=== PATIENT | female | born 1990 | race Hispanic/Latino ===

== ENCOUNTER 2019-08-01 08:55 | Emergency (ER) | payer MEDICAID ==
[2019-08-01] MEDS ORDERED: ZOFRAN IV ONE (09:54)
[2019-08-01] MEDS ORDERED: MORPHINE IV ONE (09:54)
[2019-08-01 10:27] LABS: Basophils % (Auto) 0.3 % (0.0-1.8); Eosinophils % (Auto) 1.2 % (0.0-4.3); Hematocrit 30.6 % (30.3-42.9); Hemoglobin 10.4 gm/dl (10.1-14.3); Lymphocytes # (Auto) 0.7 K/mm3 (1.2-5.4); Lymphocytes % (Auto) 17.1 % (13.4-35.0); Mean Corpuscular HGB Conc 34 % (30-34); Mean Corpuscular Volume 87 fl (79-97); Monocytes # (Auto) 0.4 K/mm3 (0.0-0.8); Monocytes % (Auto) 10.7 % (0.0-7.3); Platelet Count 140 K/mm3 (140-440); Red Blood Count 3.51 M/mm3 (3.65-5.03); Red Cell Distribution Width 15.4 % (13.2-15.2)
[2019-08-01 10:34] LABS: Alanine Aminotransferase 7 units/L (7-56); Albumin 3.9 g/dL (3.9-5); BUN/Creatinine Ratio 12; Blood Urea Nitrogen 6 mg/dL (7-17); Calcium 8.8 mg/dL (8.4-10.2); Hemolysis Index 4
--- NOTE | 2019-08-01 11:31 | Emergency Department Report ---
ED General Adult HPI - General Chief complaint: Abdominal Pain Stated complaint: ABD PAIN Time Seen by Provider: 08/01/19 09:28 Source: patient, EMS Mode of arrival: Stretcher Limitations: No Limitations - History of Present Illness Initial comments: The patient presents to the emergency department with chief complaint of right lower quadrant abdominal pain that has been present his awakening this morning. Patient describes the pain as sharp in nature and denies any radiation. Patient has no other complaints. -: Sudden Location: abdomen Radiation: non-radiation Severity scale (0 -10): 9 Quality: sharp Consistency: constant Improves with: none Worsens with: none Associated Symptoms: denies other symptoms Treatments Prior to Arrival: none - Related Data Previous Rx's Medication Instructions Recorded Last Taken Type Acetaminophen/Codeine [Tylenol 1 tab PO Q6H PRN #15 tab 08/01/19 Unknown Rx /Codeine # 3 tab] Naproxen [Naprosyn] 500 mg PO BID PRN #20 tablet 08/01/19 Unknown Rx Ondansetron [Zofran Odt] 4 mg PO Q4HR PRN #20 tab.rapdis 08/01/19 Unknown Rx Allergies Allergy/AdvReac Type Severity Reaction Status Date / Time No Known Allergies Allergy Unverified 08/01/19 09:02 ED Review of Systems ROS: Stated complaint: ABD PAIN Other details as noted in HPI Constitutional: denies: chills, fever Eyes: denies: eye pain, eye discharge, vision change ENT: denies: ear pain, throat pain Respiratory: denies: cough, shortness of breath, wheezing Cardiovascular: denies: chest pain, palpitations Endocrine: no symptoms reported Gastrointestinal: abdominal pain. denies: nausea, diarrhea Genitourinary: denies: urgency, dysuria, discharge Musculoskeletal: denies: back pain, joint swelling, arthralgia Skin: denies: rash, lesions Neurological: denies: headache, weakness, paresthesias Psychiatric: denies: anxiety, depression Hematological/Lymphatic: denies: easy bleeding, easy bruising ED Past Medical Hx - Past Medical History Previous Medical History?: Yes Hx Asthma: Yes Hx HIV: Yes - Surgical History Past Surgical History?: No - Social History Smoking Status: Current Every Day Smoker Substance Use Type: None - Medications Home Medications: Home Medications Medication Instructions Recorded Confirmed Last Taken Type Acetaminophen/Codeine [Tylenol 1 tab PO Q6H PRN #15 tab 08/01/19 Unknown Rx /Codeine # 3 tab] Naproxen [Naprosyn] 500 mg PO BID PRN #20 tablet 08/01/19 Unknown Rx Ondansetron [Zofran Odt] 4 mg PO Q4HR PRN #20 tab.rapdis 08/01/19 Unknown Rx ED Physical Exam - General Limitations: No Limitations General appearance: alert, in no apparent distress - Head Head exam: Present: atraumatic, normocephalic - Eye Eye exam: Present: normal appearance, PERRL, EOMI - ENT ENT exam: Present: mucous membranes moist - Neck Neck exam: Present: normal inspection - Respiratory Respiratory exam: Present: normal lung sounds bilaterally. Absent: respiratory distress - Cardiovascular Cardiovascular Exam: Present: regular rate, normal rhythm. Absent: systolic murmur, diastolic murmur, rubs, gallop - GI/Abdominal GI/Abdominal exam: Present: soft, tenderness (right lower quadrant tenderness to palpation), normal bowel sounds. Absent: distended - Extremities Exam Extremities exam: Present: normal inspection - Back Exam Back exam: Present: normal inspection - Neurological Exam Neurological exam: Present: alert, oriented X3, CN II-XII intact. Absent: motor sensory deficit - Psychiatric Psychiatric exam: Present: normal affect, normal mood - Skin Skin exam: Present: warm, dry, intact, normal color. Absent: rash ED Course Vital Signs 08/01/19 09:00 Temperature 98.2 F Pulse Rate 66 Respiratory 20 Rate Blood Pressure 102/43 O2 Sat by Pulse 100 Oximetry ED Medical Decision Making - Lab Data Result diagrams: 08/01/19 09:59 08/01/19 09:59 Lab Results 08/01/19 08/01/19 08/01/19 Range/Units 09:59 09:59 09:59 WBC 4.0 L (4.5-11.0) K/mm3 RBC 3.51 L (3.65-5.03) M/mm3 Hgb 10.4 (10.1-14.3) gm/dl Hct 30.6 (30.3-42.9) % MCV 87 (79-97) fl MCH 30 (28-32) pg MCHC 34 (30-34) % RDW 15.4 H (13.2-15.2) % Plt Count 140 (140-440) K/mm3 Lymph % (Auto) 17.1 (13.4-35.0) % [place] % (Auto) 10.7 H (0.0-7.3) % Eos % (Auto) 1.2 (0.0-4.3) % Baso % (Auto) 0.3 (0.0-1.8) % Lymph # 0.7 L (1.2-5.4) K/mm3 [place] # 0.4 (0.0-0.8) K/mm3 Eos # 0.0 (0.0-0.4) K/mm3 Baso # 0.0 (0.0-0.1) K/mm3 Seg Neutrophils % 70.7 H (40.0-70.0) % Seg Neutrophils # 2.8 (1.8-7.7) K/mm3 Sodium 140 (137-145) mmol/L Potassium 3.2 L (3.6-5.0) mmol/L Chloride 103.9 (98-107) mmol/L Carbon Dioxide 26 (22-30) mmol/L Anion Gap 13 mmol/L BUN 6 L (7-17) mg/dL Creatinine 0.5 L (0.7-1.2) mg/dL Estimated GFR > 60 ml/min BUN/Creatinine Ratio 12 % Glucose 82 (65-100) mg/dL Calcium 8.8 (8.4-10.2) mg/dL Total Bilirubin 0.90 (0.1-1.2) mg/dL AST 20 (5-40) units/L ALT 7 (7-56) units/L Alkaline Phosphatase 48 (35-129) units/L Total Protein 9.3 H (6.3-8.2) g/dL Albumin 3.9 (3.9-5) g/dL Albumin/Globulin Ratio 0.7 % Lipase 10 L (13-60) units/L HCG, Quant < 2 (0-4) mIU/mL Urine Color (Yellow) Urine Turbidity (Clear) Urine pH (5.0-7.0) Ur Specific [place] (1.003-1.030) Urine Protein (Negative) mg/dL Urine Glucose (UA) (Negative) mg/dL Urine Ketones (Negative) mg/dL Urine Blood (Negative) Urine Nitrite (Negative) Urine Bilirubin (Negative) Urine Urobilinogen (<2.0) mg/dL Ur Leukocyte Esterase (Negative) Urine WBC (Auto) (0.0-6.0) /HPF Urine RBC (Auto) (0.0-6.0) /HPF U Epithel Cells (Auto) (0-13.0) /HPF 08/01/19 Range/Units 11:19 WBC (4.5-11.0) K/mm3 RBC (3.65-5.03) M/mm3 Hgb (10.1-14.3) gm/dl Hct (30.3-42.9) % MCV (79-97) fl MCH (28-32) pg MCHC (30-34) % RDW (13.2-15.2) % Plt Count (140-440) K/mm3 Lymph % (Auto) (13.4-35.0) % [place] % (Auto) (0.0-7.3) % Eos % (Auto) (0.0-4.3) % Baso % (Auto) (0.0-1.8) % Lymph # (1.2-5.4) K/mm3 [place] # (0.0-0.8) K/mm3 Eos # (0.0-0.4) K/mm3 Baso # (0.0-0.1) K/mm3 Seg Neutrophils % (40.0-70.0) % Seg Neutrophils # (1.8-7.7) K/mm3 Sodium (137-145) mmol/L Potassium (3.6-5.0) mmol/L Chloride (98-107) mmol/L Carbon Dioxide (22-30) mmol/L Anion Gap mmol/L BUN (7-17) mg/dL Creatinine (0.7-1.2) mg/dL Estimated GFR ml/min BUN/Creatinine Ratio % Glucose (65-100) mg/dL Calcium (8.4-10.2) mg/dL Total Bilirubin (0.1-1.2) mg/dL AST (5-40) units/L ALT (7-56) units/L Alkaline Phosphatase (35-129) units/L Total Protein (6.3-8.2) g/dL Albumin (3.9-5) g/dL Albumin/Globulin Ratio % Lipase (13-60) units/L HCG, Quant (0-4) mIU/mL Urine Color Yellow (Yellow) Urine Turbidity Clear (Clear) Urine pH 7.0 (5.0-7.0) Ur Specific [place] 1.008 (1.003-1.030) Urine Protein <15 mg/dl (Negative) mg/dL Urine Glucose (UA) Neg (Negative) mg/dL Urine Ketones Neg (Negative) mg/dL Urine Blood Neg (Negative) Urine Nitrite Neg (Negative) Urine Bilirubin Neg (Negative) Urine Urobilinogen < 2.0 (<2.0) mg/dL Ur Leukocyte Esterase Mod (Negative) Urine WBC (Auto) 2.0 (0.0-6.0) /HPF Urine RBC (Auto) 1.0 (0.0-6.0) /HPF U Epithel Cells (Auto) 2.0 (0-13.0) /HPF - Radiology Data Radiology results: report reviewed - Medical Decision Making discussed results with patient Critical care attestation.: If time is entered above; I have spent that time in minutes in the direct care of this critically ill patient, excluding procedure time. ED Disposition Clinical Impression: Abdominal pain, Ovarian cyst Disposition: TO HOME OR SELFCARE Is pt being admited?: No Does the pt Need Aspirin: No Condition: Stable Instructions: Abdominal Pain (ED), Ovarian Cyst (ED), Acute Abdominal Pain (ED) Additional Instructions: return if worse Referrals: PRIMARY CARE,MD [Primary Care Provider] - 3-5 Days [facility] [Provider Group] - 3-5 Days [facility] [Provider Group] - 3-5 Days Time of Disposition: 12:15
[2019-08-01 11:39] LABS: Bilirubin,Urine NEG (Negative); Blood,Urine NEG (Negative); Color,Urine Yellow (Yellow); Protein,Urine <15 mg/dL mg/dL (Negative); Urobilinogen,Urine < 2.0 mg/dL (<2.0)
--- NOTE | 2019-08-01 11:55 | Cat Scan Report ---
CT ABDOMEN AND PELVIS WITHOUT CONTRAST HISTORY: Right lower quadrant abdominal pain. COMPARISON: None TECHNIQUE: Images of the abdomen and pelvis were obtained without IV contrast. Oral contrast was not given. Note: All CT scans at this location are performed using CT dose reduction employed for ALARA by means of automated exposure control. This exam is limited without IV contrast and is tailored for evaluation of renal calculi. Renal gaviota s and other sources of hematuria and abdominal pain may not be visible on this exam. CONTRAST: None. FINDINGS: CT ABDOMEN: Lung Bases: Clear. Liver: No significant abnormality. Biliary: No significant abnormality. Spleen: No significant abnormality. Unenlarged. Pancreas: No significant abnormality. Adrenals: No significant abnormality. Right Kidney: No nephrolithiasis or hydronephrosis. Incomplete rotation of the kidney. Left Kidney: No nephrolithiasis or hydronephrosis. Lymphatics: No lymphadenopathy. Vasculature: No significant abnormality. Bowel/Peritoneum: No significant abnormality. No free air. No free fluid. Normal appendix. The termin al ileum is normal. CT PELVIS: : Normal uterus and urinary bladder. Normal right ovary with a 1.2 cm dominant follicle. A normal s mall left ovary. Osseous Structures: No significant abnormality. Additional Findings: No adnexal mass or free fluid. IMPRESSION: 1. Normal abdomen. 2. Normal appendix with no signs of appendicitis. 3. No urinary calculus. 4. Normal pelvis with a dominant 1.2 cm follicle of the right ovary. Signer Name: Jamey Mckeon MD Signed: 08/01/2019 11:51 AM Workstation Name: [id number]
[2019-08-01 13:26] VITALS: BP 125/77
== END 2019-08-01 13:24 | disposition home or self-care (01) ==
LOC: ED 08:55
DX: N83.201 Unspecified ovarian cyst, right side (principal); J45.909 Unspecified asthma, uncomplicated; Z21 Asymptomatic human immunodeficiency virus [HIV] infection status; F17.200 Nicotine dependence, unspecified, uncomplicated; Z79.899 Other long term (current) drug therapy
CPT/HCPCS: 36415; 74176; 80053; 81001; 83690; 84702; 85025; 96374; 96375; 99284; J2270; J2405

== ENCOUNTER 2019-10-04 12:38 | Emergency (ER) | payer MEDICAID ==
[2019-10-04] MEDS ORDERED: ALBUTEROL 2.5 MG/3 ML NEBU IH ONE (12:56)
--- NOTE | 2019-10-04 12:58 | Emergency Department Report ---
Minor Respiratory - HPI Chief Complaint: Dyspnea/Respdistress Stated Complaint: ASTHMA Time Seen by Provider: 10/04/19 12:56 Duration: 2 Days Pain Location: Chest Severity: mild Minor Respiratory: Yes Able to Tolerate Fluids, No Rhinorrhea, No Sore Throat, No Ear Pain, No Cough, No Sick Contacts, No Hemoptysis, No Chest Pain, No Shortness of Breath, No Fever Other History: 29 YO AA FEMALE WHO COMES IN WITH WHEEZING, WITH WEATHER CHANGE. NO FEVER OR CHILLS. BORN WITH HIV. NO PURULENT SPUTUM. PCP. BARROSO. RX. ALBUTEROL. PMH. HIV FOLLOWED BARROSO. LMP 09/26. GIVEN SOLUMEDROL, 2.5 ALBUTEROL AND MG 2G IV BY EMS. ED Review of Systems ROS: Stated complaint: ASTHMA Other details as noted in HPI Comment: All other systems reviewed and negative ED Past Medical Hx - Past Medical History Previous Medical History?: Yes Hx Asthma: Yes Hx HIV: Yes - Surgical History Past Surgical History?: Yes - Family History Family history: no significant - Social History Smoking Status: Current Every Day Smoker Substance Use Type: None - Medications Home Medications: Home Medications Medication Instructions Recorded Confirmed Last Taken Type ALBUTEROL Inhaler (OR & NICU) 2 puff IH QID PRN #1 inhalation 10/04/19 Unknown Rx [ProAir HFA Inhaler] Azithromycin [Zithromax Z-CHRISTINE] 250 mg PO DAILY #6 tablet 10/04/19 Unknown Rx Cetirizine HCl [ZyrTEC] 10 mg PO DAILY #30 capsule 10/04/19 Unknown Rx predniSONE [Deltasone] 20 mg PO DAILY #5 tablet 10/04/19 Unknown Rx Minor Respiratory Exam - Exam General: Vital signs noted. No distress. Alert and acting appropriately. HEENT: Yes Moist Mucous Membranes, No Pharyngeal Erythema, No Pharyngeal Exudates, No Rhinorrhea, No Conjuctival Injection, No Frontal Tenderness, No Maxillary Tenderness Ear: Neither TM Bulge, Neither TM Erythema, Neither EAC Pain, Neither EAC Discharge Neck: Yes Supple, No Adenopathy Lungs: Yes Good Air Exchange, Yes Wheezes, No Ronchi, No Stridor, No Cough, No Labored Respirations, No Retractions, No Use of Accessory Muscles, No Other Abnormal Lung Sounds Heart: Yes Regular, No Murmur Abdomen: Yes Normal Bowel Sounds, No Tenderness, No Peritoneal Signs Skin: No Rash, No Edema Neurologic: Alert and oriented, no deficits. Musculoskeletal: Unremarkable. ED Course - Reevaluation(s) Reevaluation #1: 10/04/19 14:01 LUNGS CTA SATA 100 ON ROOM AIR ED Medical Decision Making - Lab Data Result diagrams: 10/04/19 13:04 - Radiology Data Radiology results: report reviewed, image reviewed - Medical Decision Making ASHTMA AE HIV POS DUONEB 5MG IN ER XRAY NEG REEXAM NO WHEEZING; SAT 100 ON ROOM AIR NO COMPLAINTS DC HOME WITH DC PLAN OF CARE AND PCP FOLLOW UP Labs 10/04/19 10/04/19 13:04 13:04 WBC 3.6 L RBC 3.45 L Hgb 10.4 Hct 30.5 MCV 88 MCH 30 MCHC 34 RDW 14.6 Plt Count 140 HCG, Qual Negative Vital Signs 10/04/19 13:25 Temperature 98.2 F Pulse Rate 76 Respiratory 21 Rate Blood Pressure 105/57 [Right] O2 Sat by Pulse 100 Oximetry - Differential Diagnosis ASTHMA AE Critical care attestation.: If time is entered above; I have spent that time in minutes in the direct care of this critically ill patient, excluding procedure time. ED Disposition Clinical Impression: History of HIV infection, Asthma with acute exacerbation Disposition: DC-01 TO HOME OR SELFCARE Is pt being admited?: No Does the pt Need Aspirin: No Condition: Stable Instructions: Asthma (ED) Additional Instructions: MEDS ORDERED TODAY FOLLOW UP WITH PCP REFERRAL BELOW ALSO FOLLOW UP WITH B[facility]OSO CONTINUE HOME MEDS DIET AND ACTIVITY TOLERATED HYDRATE WELL WITH WATER Prescriptions: predniSONE [Deltasone] 20 mg PO DAILY #5 tablet ALBUTEROL Inhaler (OR & NICU) [ProAir HFA Inhaler] 2 puff IH QID PRN #1 inhalation PRN Reason: Shortness Of Breath Azithromycin [Zithromax Z-CHRISTINE] 250 mg PO DAILY #6 tablet Cetirizine HCl [ZyrTEC] 10 mg PO DAILY #30 capsule Referrals: [facility] [Outside] - 3-5 Days Time of Disposition: 14:03
[2019-10-04 13:38] LABS: Hematocrit 30.5 % (30.3-42.9); Hemoglobin 10.4 gm/dl (10.1-14.3); Mean Corpuscular HGB Conc 34 % (30-34); Mean Corpuscular Volume 88 fl (79-97); Platelet Count 140 K/mm3 (140-440); Red Blood Count 3.45 M/mm3 (3.65-5.03); Red Cell Distribution Width 14.6 % (13.2-15.2)
--- NOTE | 2019-10-04 14:06 | XRay Report ---
CHEST 1 VIEW INDICATION: SOB ASTHMA ATTACK/. COMPARISON: None FINDINGS: Support devices: None. Heart: Within normal limits. Lungs/Pleura: No acute air space or interstitial disease. Additional findings: None. IMPRESSION: No acute findings. Signer Name: Dima Prince Jr, MD Signed: 10/04/2019 2:01 PM Workstation Name: [id number]
[2019-10-04] MEDS ORDERED: AZITHROMYCIN 250 MG TAB PO ONE (14:07)
[2019-10-04 15:16] VITALS: BP 101/55
== END 2019-10-04 15:10 | disposition home or self-care (01) ==
LOC: ED 12:38
DX: J45.901 Unspecified asthma with (acute) exacerbation (principal); F17.200 Nicotine dependence, unspecified, uncomplicated
CPT/HCPCS: 36415; 71045; 84703; 85027; 94640; 94644

== ENCOUNTER 2019-10-05 13:58 | Emergency (ER) | payer MEDICAID ==
[2019-10-05] MEDS ORDERED: predniSONE 20 MG TAB PO ONE (14:14)
[2019-10-05] MEDS ORDERED: ALBUTEROL 2.5 MG/3 ML NEBU IH ONE (14:14)
[2019-10-05] MEDS ORDERED: IPRATROPIUM 0.02% NEBU 2.5 ML IH ONE (14:14)
--- NOTE | 2019-10-05 14:15 | Emergency Department Report ---
Blank Doc - Documentation Documentation: 29-year-old female that presents with SOB. HX of asthma. Was here yesterday and started to have symptoms again this morning. Did not refill prednisone. This initial assessment/diagnostic orders/clinical plan/treatment(s) is/are subject to change based on patient's health status, clinical progression and re- assessment by fellow clinical providers in the ED. Further treatment and workup at subsequent clinical providers discretion. Patient/guardians urged not to elope from the ED as their condition may be serious if not clinically assessed and managed. Initial orders include: 1- Patient sent to [facility] for further evaluation and treatment 2- breathing treatment/steroids
--- NOTE | 2019-10-05 16:41 | Emergency Department Report ---
ED Asthma HPI - General Chief Complaint: Dyspnea/Respdistress Stated Complaint: JOSESITO Time Seen by Provider: 10/05/19 14:11 Source: patient, EMS Mode of arrival: Stretcher Limitations: No Limitations - History of Present Illness Initial Comments: Cc: "asthma" HPI: Ms. Gupta is a 29 yo female with hx of asthma, HIV who was seen yesterday in this ED. She was diagnosed with URI. Prescribed prednisone azithromycin albuterol cetirizine. She is unable to afford the prednisone and cetirizine. She did feel albuterol and azithromycin. She returns to the emergency department via EMS with shortness of breath. After treatment in emergency department including nebulizer therapy and prednisone she felt much improved. She desires a new nebulizer machine which is broken at home. MD Complaint: "asthma attack", shortness of breath, other (cough) -: Gradual, days(s) (2) Asthma History: adult onset, history of prior ED visit Severity: mild Context: ran out of meds Associated Symptoms: dry cough - Related Data Previous Rx's Medication Instructions Recorded Last Taken Type ALBUTEROL Inhaler (OR & NICU) 2 puff IH QID PRN #1 inhalation 10/04/19 Unknown Rx [ProAir HFA Inhaler] Azithromycin [Zithromax Z-CHRISTINE] 250 mg PO DAILY #6 tablet 10/04/19 Unknown Rx Cetirizine HCl [ZyrTEC] 10 mg PO DAILY #30 capsule 10/04/19 Unknown Rx predniSONE [Deltasone] 20 mg PO DAILY #5 tablet 10/04/19 Unknown Rx Allergies Allergy/AdvReac Type Severity Reaction Status Date / Time No Known Allergies Allergy Unverified 08/01/19 09:02 ED Review of Systems ROS: Stated complaint: JOSESITO Other details as noted in HPI Comment: All other systems reviewed and negative ENT: congestion Respiratory: cough, shortness of breath, wheezing Cardiovascular: denies: chest pain ED Past Medical Hx - Past Medical History Previous Medical History?: Yes Hx Asthma: Yes Hx HIV: Yes - Surgical History Past Surgical History?: Yes Additional Surgical History: 2009, 2014 - Social History Smoking Status: Never Smoker Substance Use Type: Marijuana - Medications Home Medications: Home Medications Medication Instructions Recorded Confirmed Last Taken Type ALBUTEROL Inhaler (OR & NICU) 2 puff IH QID PRN #1 inhalation 10/04/19 Unknown Rx [ProAir HFA Inhaler] Azithromycin [Zithromax Z-CHRISTINE] 250 mg PO DAILY #6 tablet 10/04/19 Unknown Rx Cetirizine HCl [ZyrTEC] 10 mg PO DAILY #30 capsule 10/04/19 Unknown Rx predniSONE [Deltasone] 20 mg PO DAILY #5 tablet 10/04/19 Unknown Rx ED Physical Exam - General Limitations: No Limitations General appearance: alert, in no apparent distress, other (frequent cough speaking full sentences with ease) - Head Head exam: Present: atraumatic, normocephalic - Eye Eye exam: Present: normal appearance - ENT ENT exam: Present: mucous membranes moist - Neck Neck exam: Present: normal inspection, full ROM - Respiratory Respiratory exam: Present: normal lung sounds bilaterally. Absent: respiratory distress, wheezes, rales, rhonchi, accessory muscle use, decreased breath sounds, prolonged expiratory - Cardiovascular Cardiovascular Exam: Present: regular rate, normal rhythm. Absent: systolic murmur, diastolic murmur, rubs, gallop - GI/Abdominal GI/Abdominal exam: Present: soft, normal bowel sounds. Absent: distended, tenderness, guarding, rebound - Extremities Exam Extremities exam: Present: normal inspection - Back Exam Back exam: Present: normal inspection - Neurological Exam Neurological exam: Present: alert, oriented X3 - Psychiatric Psychiatric exam: Present: normal affect, normal mood - Skin Skin exam: Present: warm, dry, intact, normal color. Absent: rash ED Course Vital Signs 10/05/19 10/05/19 14:03 15:08 Temperature 98.5 F Pulse Rate 76 Pulse Rate [ 79 Anterior Bilateral Throughout] Respiratory 19 Rate Respiratory 20 Rate [Anterior Bilateral Throughout] Blood Pressure 115/54 O2 Sat by Pulse 100 Oximetry ED Medical Decision Making - Medical Decision Making Validating presents with mild asthma exacerbation. Symptoms have resolved after treatment in the ED with the exception of cough. She has clear breath sounds on exam. Repeat oxygenation 100% on room air. I encouraged scheduled use of al buterol MDI which she has now at bedside. She will continue her azithromycin therapy. Discharged home. Critical care attestation.: If time is entered above; I have spent that time in minutes in the direct care of this critically ill patient, excluding procedure time. ED Disposition Clinical Impression: Asthma with acute exacerbation Disposition: DC-01 TO HOME OR SELFCARE Is pt being admited?: No Does the pt Need Aspirin: No Instructions: Asthma (ED) Referrals: [facility] [Outside] - 3-5 Days
[2019-10-05 17:00] VITALS: BP 118/60
== END 2019-10-05 17:00 | disposition home or self-care (01) ==
LOC: ED 13:58
DX: J45.901 Unspecified asthma with (acute) exacerbation (principal); F12.10 Cannabis abuse, uncomplicated; Z21 Asymptomatic human immunodeficiency virus [HIV] infection status; Z98.890 Other specified postprocedural states; Z79.899 Other long term (current) drug therapy
CPT/HCPCS: 94640; 99283; J7512; 94644

== ENCOUNTER 2020-02-12 15:28 | Emergency (ER) | payer MEDICAID ==
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
[2020-02-12 16:13] VITALS: BP 106/69
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
[2020-02-12] MEDS ORDERED: traMADol 50 MG TAB PO ONE (21:33)
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
[2020-02-12] MEDS ORDERED: IBUPROFEN 600 MG TAB PO ONE ×2 (22:18→22:19)
== END 2020-02-12 22:20 | disposition home or self-care (01) ==
LOC: ED 15:28
DX: M25.522 Pain in left elbow (principal); M25.562 Pain in left knee; V49.59XA Passenger injured in collision with other motor vehicles in traffic accident, initial encounter; Y92.488 Other paved roadways as the place of occurrence of the external cause; Y93.89 Activity, other specified; Y99.9 Unspecified external cause status
CPT/HCPCS: 99283